=== PATIENT | male | born 1985 | race Caucasian/White ===

== ENCOUNTER 2023-10-12 13:11 | Emergency (ER) | payer BC, SELFPAY ==
[2023-10-12 14:20] VITALS: BP 144/95; PULSE 100; RESP 16; TEMP 37.2; O2SAT 99
--- NOTE | 2023-10-12 15:22 | ED.URI ---
HPI - URI/Sore Throat General Chief Complaint: Upper Respiratory Infection Stated Complaint: Vomiting/Sinus Source: patient and RN notes reviewed Mode of arrival: ambulatory Limitations: no limitations History of Present Illness HPI Narrative: 37-year-old male presented for complaint of nausea, vomiting, diarrhea. also with body aches and chills. Onset 0200 following [employer] where he ate a large amount of food. Symptoms resolved at 9:00 a.m. He did not take anything for symptoms. He has been able to tolerate sips of fluids. Denies abdominal pain, sore throat, dizziness, or fever. Related Data Home Medications Medication Instructions Recorded Confirmed No Home Medications 10/12/23 10/12/23 Allergies Allergy/AdvReac Type Severity Reaction Status Date / Time No Known Allergies Allergy Verified 10/12/23 15:34 Review of Systems Review of Systems: CONSTITUTIONAL: Reports body aches,, chills ENT: Denies rhinorrhea, congestion CARDIOVASCULAR: Denies chest pain, palpitations, or edema. RESPIRATORY: Denies cough or dyspnea. GASTROINTESTINAL: Endorses nausea, vomiting, diarrhea. Denies abdominal pain, hematochezia, melena, hematemesis GENITOURINARY: Denies dysuria, hematuria, or CVA tenderness. SKIN: Denies rash, itching, or wounds. MUSCULOSKELETAL: Denies back pain, joint pain, reports myalgia. NEUROLOGIC: Denies headache, numbness, tingling, or weakness. All systems reviewed & are unremarkable except as noted in HPI and below PMFSH Past Medical History Medical History (Updated 10/12/23 @ 15:52 by Adilia Stack, TEO) No pertinent past medical history Comments At time of signature, I have reviewed and agree with nursing past medical, surgical, social and family history unless otherwise noted. Please see nursing chart for further information. There is no relevant family history pertinent to the presenting complaint Exam Narrative: GENERAL: Well-appearing, and in no acute distress. EYES: EOMI. Conjunctivae normal. ENT: Mucous membranes pink and moist. CHEST: Clear to auscultation. HEART: Regular rate and rhythm. No murmur appreciated. Normal peripheral pulses. ABDOMEN: abd soft, nondistended, normal active bowel sounds. Nontender abdomen, No guarding, rebound tenderness, asymmetry EXTREMITIES: Normal range of motion. No edema. SKIN: Warm, dry, no rash. Capillary refill normal. Normal skin turgor. NEURO: No focal deficits. Alert and oriented x3. PSYCH: Normal affect. Course Course Emergency Course: Patient is aware of diagnosis, understands and agrees to treatment plan. Anticipatory guidance given. Patient agrees to follow-up as directed and is aware of reasons to seek care at the emergency department. Portions of this record may have been created with voice recognition software Level of Care: Express Care Visit Vital Signs Vital signs: Vital Signs Temperature 99.0 F 10/12/23 14:20 Pulse Rate 100 10/12/23 14:20 Respiratory Rate 16 10/12/23 14:20 Blood Pressure 144/95 H 10/12/23 14:20 Pulse Oximetry 99 10/12/23 14:20 Oxygen Delivery Room Air 10/12/23 14:20 Temperature 99.0 F 10/12/23 14:20 Pulse Rate 100 10/12/23 14:20 Respiratory Rate 16 10/12/23 14:20 Blood Pressure 144/95 H 10/12/23 14:20 Pulse Oximetry 99 10/12/23 14:20 Oxygen Delivery Room Air 10/12/23 14:20 MDM - URI/Sore Throat MDM Narrative Medical decision making narrative: Neg flu and covid test results reviewed with patient. Discussed physical exam findings. Advised supportive measures and signs/symptoms to go to the ER. Pt is appropriate for outpt treatment and f/u. Differential Diagnosis Differential diagnosis: Likely upper respiratory infection, otitis media, sinusitis, viral infection, influenza and other (gastroenteritis, gastritis, appendicitis, pancreatitis, bowel obstruction, bowel perforation, food poisoning, dehydration) Discharge Plan Discharge Clinic
== END 2023-10-12 15:54 | disposition home or self-care (01) ==
PROVIDERS: Emergency Provider Nurse Practitioner Family; PCP Emergency Medicine
DX: R11.2 Nausea with vomiting, unspecified (principal); R19.7 Diarrhea, unspecified; Z20.822 Contact with and (suspected) exposure to COVID-19
CPT/HCPCS: 87426; 87804; 99203; C9803; G0463

== ENCOUNTER 2025-03-20 15:16 | Emergency (ER) | payer BC, SELFPAY ==
[2025-03-20 15:26] VITALS: BP 139/86; PULSE 85; RESP 16; TEMP 36.6; O2SAT 98
--- NOTE | 2025-03-20 16:23 | ED.SKABFB ---
HPI - Skin/Abscess/Foreign Bdy General Chief complaint: Skin/Abscess/Foreign Body Stated complaint: Rash Time Seen by Provider: 03/20/25 16:15 Source: patient and RN notes reviewed Mode of arrival: ambulatory Limitations: no limitations History of Present Illness HPI narrative: Patient presents today complaining of persistent poison tanya to the right lateral thigh and right buttock. Symptoms began 3 weeks ago. He was seen at another urgent care on 03/05/2025 and given prescription for triamcinolone and a Medrol Dosepak. States he believes the poison tanya rash is resolved on other parts of the body, but he has a severely pruritic crusting rash on the right leg and buttock that will not resolve. Related Data Allergies Allergy/AdvReac Type Severity Reaction Status Date / Time No Known Allergies Allergy Verified 03/20/25 16:07 Review of Systems Review of Systems: CONSTITUTIONAL: Denies body aches, fever, chills, or sweats. EYES: Denies visual changes, redness, or discharge. ENT: Denies rhinorrhea, congestion, sore throat, or otalgia. CARDIOVASCULAR: Denies chest pain, palpitations, or edema. RESPIRATORY: Denies cough or dyspnea. GASTROINTESTINAL: Denies abdominal pain, nausea, vomiting, or diarrhea. GENITOURINARY: Denies dysuria or hematuria. SKIN: Pruritic rash MUSCULOSKELETAL: Denies back pain, joint pain, or myalgia. NEUROLOGIC: Denies headache, numbness, tingling, or weakness. PSYCH: Denies depression or anxiety. [facility] Past Medical History Medical History (Updated 03/20/25 @ 16:27 by Carleen Rivers, [facility], ) No pertinent past medical history Comments At time of signature, I have reviewed and agree with nursing past medical, surgical, social and family history unless otherwise noted. Please see nursing chart for further information. There is no relevant family history pertinent to the presenting complaint Exam Narrative: GENERAL: Well-appearing, well-nourished, and in no acute distress. HEAD: Normocephalic, atraumatic. EYES: EOMI. No redness or drainage. Conjunctivae normal. ENT: Mucous membranes pink and moist. NECK: Normal AROM. CHEST: No respiratory distress. EXTREMITIES: Normal range of motion. No edema. SKIN: 14 x 15 cm round area of erythema to the right lateral thigh with honey crusting in the center. Nontender without induration. Similar rash to the right buttock. NEURO: No focal deficits. Alert and oriented x3. Gait steady. PSYCH: Normal affect. No signs of depression or anxiety. Course Course Level of Care: Express Care Visit Vital Signs Vital signs: Vital Signs Temperature 97.8 F 03/20/25 15:26 Pulse Rate 85 03/20/25 15:26 Respiratory Rate 16 03/20/25 15:26 Blood Pressure 139/86 03/20/25 15:26 Pulse Oximetry 98 03/20/25 15:26 Temperature 97.8 F 03/20/25 15:26 Pulse Rate 85 03/20/25 15:26 Respiratory Rate 16 03/20/25 15:26 Blood Pressure 139/86 03/20/25 15:26 Pulse Oximetry 98 03/20/25 15:26 Reviewed MDM - Skin/Abscess/Foreign Bdy MDM Narrative Medical decision making narrative: Patient will be treated with a course of Keflex and mupirocin for presumed impetigo secondary to resolved contact dermatitis. Prescription for additional prednisone will also be sent over in case residual contact dermatitis persists after cellulitis has been treated. Patient agrees with plan. Anticipatory guidance given. Differential Diagnosis Differential diagnosis: Likely abscess of skin or subcutaneous tissue, dermatophytosis, urticaria, cellulitis, impetigo and contact dermatitis Critical Care Time Critical Care Time Critical Care Time: No Discharge Plan Discharge Clinical Impression: Impetigo Patient Disposition: Home Condition: Stable Instructions: Antibiotic Form, Impetigo (ED) Additional Instructions: Please start the Keflex and mupirocin and take as directed. If after your finished with the antibiotics use still feel that there is some residual poison tanya, you may start the prednisone. Follow-up with your PCP with any concerns. Your blood pressure was elevated above 120/80 today at Urgent Care. This puts you above the threshold for follow up. Please schedule a followup visit with your personal physician as soon as possible, for further evaluation and treatment. Even blood pressure exceeding 120/80 may indicate pre-hypertension. Patient Language: Indonesian Prescriptions: New cephalexin 500 mg capsule 500 mg PO Q6H 7 Days Qty: 28 0RF prednisone 50 mg tablet 50 mg PO DAILY 5 Days Qty: 5 0RF mupirocin 2 % ointment 1 applic topical BID 7 Days Qty: 22 0RF Follow-up/Referrals: PHYSICIAN,MACHINE STAKER [Primary Care Provider] - Time of Disposition: 16:28
== END 2025-03-20 16:30 | disposition home or self-care (01) ==
PROVIDERS: Emergency Provider Nurse Practitioner
DX: L01.00 Impetigo, unspecified (principal)
CPT/HCPCS: 99213; G0463